=== PATIENT | male | born 1980 | race Caucasian/White ===

== ENCOUNTER 2024-02-06 19:24 | Inpatient (IN) | payer MEDICAID ==
[~2024-02-06] VITALS: Ht 182.9 cm; Wt 95.3 kg
[2024-02-06 19:27] VITALS: BP_SYST 133; PULSE 120; RESP 16; TEMP 98.5; O2SAT 97
[2024-02-06 20:56] LABS: BASOPHILS # (AUTO) 0.1 K/uL (0.0-0.2); BASOPHILS % (AUTO) 1.1 % (0.0-2.0); EOSINOPHILS # (AUTO) 0.1 K/uL (0.0-0.4); EOSINOPHILS % (AUTO) 0.8 % (0.0-4.0); HEMATOCRIT 43.1 % (36-54); HEMOGLOBIN 14.7 g/dL (14.0-18.0); LYMPHOCYTES # (AUTO) 3.9 K/uL (1.0-5.5); LYMPHOCYTES % (AUTO) 47.5 % (20.5-51.5); MEAN CORPUSCULAR HEMOGLOBIN 32 pg (27-31); MEAN CORPUSCULAR HGB CONC 34 % (32-36); MEAN CORPUSCULAR VOLUME 95 fL (79.0-98.0); MONOCYTES # (AUTO) 0.3 K/uL (0.0-1.0); MONOCYTES % (AUTO) 4.2 % (1.7-9.3); NEUTROPHILS # (AUTO) 3.8 K/uL (1.8-7.7); NEUTROPHILS % (AUTO) 46.4 % (40.0-70.0); PLATELET COUNT (AUTO) 311 K/uL (130-430); RED BLOOD CELL COUNT(AUTO) 4.54 MIL/uL (4.2-6.2); RED CELL DISTRIBUTION WIDTH 14.1 % (9.0-15.0); WHITE BLOOD COUNT (AUTO) 8.2 K/uL (4.8-10.8)
[2024-02-06 20:57] LABS: ANION GAP 10 (5-15); CALCIUM 8.7 mg/dL (8.4-11.0); CARBON DIOXIDE 28 mmol/L (23-29); CHLORIDE 103 mmol/L (98-107); CREATININE 0.91 mg/dL (0.55-1.30); GFR AFRICAN AMERICAN 118 mL/min (>90); GLUCOSE 96 mg/dL (74-106); POTASSIUM 3.8 mmol/L (3.5-5.1); SODIUM SERUM 141 mmol/L (136-145); UREA NITROGEN, BLOOD 8 mg/dL (8-21)
[2024-02-06 21:01] LABS: ALANINE AMINOTRANSFERASE 49 U/L (12-78); ALBUMIN 3.2 g/dL (3.4-4.8); ALCOHOL, BLOOD 258 mg/dL (<10); ASPARTATE AMINOTRANSFERASE 24 U/L (10-37); BILIRUBIN,DIRECT < 0.1 mg/dL (0.0-0.3); CREATINE KINASE, TOTAL 119 U/L (39-308); SALICYLATE 4 mg/dL (3-30); TOTAL BILIRUBIN 0.1 mg/dL (0.0-1.0); TOTAL PROTEIN, SERUM 7.2 g/dL (6.4-8.3)
[2024-02-06 21:02] LABS: ACETAMINOPHEN < 1 ug/mL (1-30); GFR NON AFRICAN-AMERICAN 97 mL/min (>90)
[2024-02-07 01:15] LABS: BILIRUBIN,URINE NEGATIVE (NEGATIVE); COLOR,URINE YELLOW (YELLOW); GLUCOSE,URINE NEGATIVE (NEGATIVE); KETONES,URINE NEGATIVE (NEGATIVE); LEUKOCYTE ESTERASE ,URINE NEGATIVE (NEGATIVE); NITRITE, URINE NEGATIVE (NEGATIVE); PROTEIN URINE 1+ (NEGATIVE); UROBILINOGEN,URINE 0.2 (0.2-1.0)
[2024-02-07 01:40] LABS: BLOOD, URINE TRACE (NEGATIVE); CLARITY/URINE HAZY (CLEAR)
[2024-02-07 01:41] LABS: BACTERIA,URINE None Seen /HPF (None Seen); WBC,URINE 0-3 /HPF (0-3)
[2024-02-07 01:44] LABS: CANNABINOID, URINE POSITIVE (NEG <=50); COCAINE, URINE POSITIVE (NEG <=150)
[2024-02-07 01:45] LABS: BARBITURATE, URINE NEGATIVE (NEG <=200); BENZODIAZEPINE, URINE POSITIVE (NEG <=150); METHAMPHETAMINES SCREEN,URINE POSITIVE (NEG <=500); OPIATE, URINE NEGATIVE (NEG <=100); PHENCYCLIDINE SCREEN,URINE NEGATIVE (NEG <=25); UR TRICYCLIC ANTIDEPRESSANTS NEGATIVE (NEG <=300); URINE AMPHETAMINE POSITIVE (NEG <=500); URINE METHADONE NEGATIVE (NEG <=200); URINE OXYCODONE SCREEN NEGATIVE (NEG <=100)
[2024-02-07] MEDS: LORazepam 2 MG/ML VIAL IVP PRN (05:28)
[2024-02-07] MEDS ORDERED: FOLIC ACID 1 MG, THIAMINE HCL 100 MG, MAGNESIUM SULFATE 1 GM, MVI 10 ML in NACL 0.9% 1,... IV ONE (06:00)
[2024-02-07] MEDS: THIAMINE HCL 100 MG, MAGNESIUM SULFATE 1 GM in NS 100 ML IV ONE (06:53)
[2024-02-07] MEDS: FOLIC ACID 1 MG, MVI 10 ML in NACL 0.9% 1,000 ML IV ONE (06:53)
[2024-02-07 08:25] VITALS: BP_SYST 140; PULSE 90; RESP 18; TEMP 98.8; O2SAT 98
[2024-02-07 08:56] VITALS: O2SAT 98
[2024-02-07 10:35] LABS: BASOPHILS # (AUTO) 0.1 K/uL (0.0-0.2); BASOPHILS % (AUTO) 1.2 % (0.0-2.0); EOSINOPHILS # (AUTO) 0.1 K/uL (0.0-0.4); EOSINOPHILS % (AUTO) 0.8 % (0.0-4.0); HEMATOCRIT 43.2 % (36-54); LYMPHOCYTES # (AUTO) 2.1 K/uL (1.0-5.5); LYMPHOCYTES % (AUTO) 25.7 % (20.5-51.5); MEAN CORPUSCULAR HEMOGLOBIN 33 pg (27-31); MEAN CORPUSCULAR HGB CONC 35 % (32-36); MEAN CORPUSCULAR VOLUME 95 fL (79.0-98.0); MONOCYTES # (AUTO) 0.6 K/uL (0.0-1.0); MONOCYTES % (AUTO) 6.7 % (1.7-9.3); NEUTROPHILS # (AUTO) 5.5 K/uL (1.8-7.7); NEUTROPHILS % (AUTO) 65.6 % (40.0-70.0); PLATELET COUNT (AUTO) 281 K/uL (130-430); RED BLOOD CELL COUNT(AUTO) 4.57 MIL/uL (4.2-6.2); RED CELL DISTRIBUTION WIDTH 13.8 % (9.0-15.0); WHITE BLOOD COUNT (AUTO) 8.3 K/uL (4.8-10.8)
[2024-02-07 10:44] LABS: CALCIUM 8.9 mg/dL (8.4-11.0); CREATININE 0.9 mg/dL (0.55-1.30); POTASSIUM 4.1 mmol/L (3.5-5.1)
[2024-02-07 10:49] LABS: ALBUMIN 3.1 g/dL (3.4-4.8); TOTAL BILIRUBIN 0.2 mg/dL (0.0-1.0)
[2024-02-07] MEDS: THIAMINE HCL 100 MG TABLET PO ONE (10:52)
[2024-02-07] MEDS: chlordiazePOXIDE HCL 10 MG CAPSULE PO ONE (10:53)
[2024-02-07 11:08] VITALS: BP_SYST 130; PULSE 85; RESP 16; TEMP 98.6; O2SAT 96
[2024-02-07] MEDS: chlordiazePOXIDE HCL 10 MG CAPSULE PO SCH (15:10)
[2024-02-07 15:17] VITALS: BP_SYST 147; PULSE 73; RESP 18; TEMP 97.1; O2SAT 98
[2024-02-07 17:12] VITALS: BP_SYST 140; PULSE 90; RESP 18; TEMP 98.8; O2SAT 0
[2024-02-07 20:00] VITALS: BP_SYST 144; PULSE 72; RESP 18; TEMP 98; O2SAT 98
[2024-02-07] MEDS ORDERED: HYDROcodone/ACETAMIN 5-325 MG TAB (NORCO/ VICODIN) PO PRN (20:00)
[2024-02-07] MEDS: OLANZapine 10 MG TABLET PO SCH (20:13)
[2024-02-07] MEDS: TEMAZEPAM 15 MG CAPSULE PO PRN (20:14)
[2024-02-07] MEDS: HYDROcodone/ACETAMIN 10-325 MG TAB PO PRN (20:15)
[2024-02-08] VITALS (7 sets, daily range): BP systolic 128–138; PULSE 69–89; RESP 16–18; TEMP 97.6–98.8; O2SAT 95–98
[2024-02-08] MEDS: FOLIC ACID 1 MG TABLET PO SCH (08:22)
[2024-02-08] MEDS: SERTRALINE HCL 50 MG TABLET PO SCH (08:23)
[2024-02-08] MEDS: ENOXAPARIN SODIUM 100 MG/ML SYRINGE SUBCUT SCH (08:23)
[2024-02-08] MEDS: THIAMINE HCL 100 MG TABLET PO SCH (08:23)
[2024-02-08] MEDS ORDERED: *LOVENOX 1MG/KG Q24H/PHARMACY XX ONE (09:00)
[2024-02-09 00:25] VITALS: BP_SYST 135; PULSE 92; RESP 20; TEMP 97.9; O2SAT 96
[2024-02-09 07:29] LABS: BASOPHILS % (AUTO) 0.7 % (0.0-2.0); EOSINOPHILS # (AUTO) 0.3 K/uL (0.0-0.4); EOSINOPHILS % (AUTO) 3.8 % (0.0-4.0); HEMOGLOBIN 15.7 g/dL (14.0-18.0); LYMPHOCYTES # (AUTO) 2.2 K/uL (1.0-5.5); LYMPHOCYTES % (AUTO) 29.9 % (20.5-51.5); MEAN CORPUSCULAR HEMOGLOBIN 33 pg (27-31); MEAN CORPUSCULAR HGB CONC 34 % (32-36); MEAN CORPUSCULAR VOLUME 96 fL (79.0-98.0); MONOCYTES # (AUTO) 0.4 K/uL (0.0-1.0); MONOCYTES % (AUTO) 5.9 % (1.7-9.3); NEUTROPHILS # (AUTO) 4.3 K/uL (1.8-7.7); NEUTROPHILS % (AUTO) 59.7 % (40.0-70.0); PLATELET COUNT (AUTO) 271 K/uL (130-430); RED CELL DISTRIBUTION WIDTH 13.9 % (9.0-15.0); WHITE BLOOD COUNT (AUTO) 7.2 K/uL (4.8-10.8)
[2024-02-09 07:34] LABS: CALCIUM 8.7 mg/dL (8.4-11.0); CREATININE 0.78 mg/dL (0.55-1.30); POTASSIUM 3.6 mmol/L (3.5-5.1); TOTAL BILIRUBIN 0.4 mg/dL (0.0-1.0); TOTAL PROTEIN, SERUM 6.9 g/dL (6.4-8.3)
[2024-02-09 08:00] VITALS: BP_SYST 136; PULSE 89; RESP 16; TEMP 98.7; O2SAT 97
[2024-02-09 09:43] VITALS: O2SAT 98
[2024-02-09] MEDS: NICOTINE 21 MG/24 HR PATCH.TD24 TD ONE (11:58)
[2024-02-09 12:00] VITALS: BP_SYST 132; PULSE 105; RESP 16; TEMP 98; O2SAT 99
[2024-02-09] MEDS: chlordiazePOXIDE HCL 25 MG CAPSULE PO SCH (14:57)
[2024-02-09 16:00] VITALS: BP_SYST 128; PULSE 80; RESP 14; TEMP 98; O2SAT 97
[2024-02-09] MEDS ORDERED: BACLOFEN 10 MG TABLET PO SCH (18:15)
[2024-02-09] MEDS: BACLOFEN 10 MG TABLET PO SCH (18:45)
[2024-02-09 20:03] VITALS: BP_SYST 121; PULSE 87; RESP 18; TEMP 98.2; O2SAT 98
[2024-02-09] MEDS: DICLOFENAC SODIUM 25 MG TABLET.DR PO SCH (20:39)
[2024-02-10] VITALS (7 sets, daily range): BP systolic 127–137; PULSE 63–91; RESP 14–18; TEMP 97.7–98.3; O2SAT 98
[2024-02-10] MEDS: NICOTINE 21 MG/24 HR PATCH.TD24 TD SCH (08:51)
[2024-02-10 12:06] LABS: HEPATITIS A AB, IgM Negative (Negative); HEPATITIS B CORE AB, IgM Negative (Negative); HEPATITIS B SURFACE AG Negative (Negative)
[2024-02-10] MEDS: BISACODYL 5 MG TABLET.DR (DULCOLAX) PO ONE (12:57)
[2024-02-10] MEDS: DOCUSATE SODIUM 250 MG CAPSULE PO ONE (12:58)
[2024-02-10] MEDS: ACETAMINOPHEN 325 MG TABLET PO PRN (12:58)
[2024-02-10] MEDS: KETOROLAC TROMETHAMINE 10 MG TABLET (TORADOL) PO PRN (18:41)
[2024-02-11] VITALS (7 sets, daily range): BP systolic 122–135; PULSE 72–96; RESP 17–20; TEMP 97.5–98.8; O2SAT 95–98
[2024-02-11] MEDS: LORazepam 1 MG TABLET PO ONE (17:34)
[2024-02-12 01:20] VITALS: BP_SYST 140; PULSE 66; RESP 2; TEMP 97.4; O2SAT 96
[2024-02-12 07:52] VITALS: BP_SYST 120; PULSE 88; RESP 18; TEMP 98; O2SAT 100
[2024-02-12 08:00] VITALS: O2SAT 99
[2024-02-12] MEDS ORDERED: BACL10TA PO (12:44)
[2024-02-12] MEDS ORDERED: SERT-436 PO (12:44)
[2024-02-12] MEDS ORDERED: OLAN10TA3 PO (12:44)
[2024-02-12] MEDS ORDERED: Thiamine Hcl PO (12:44)
[2024-02-12] MEDS ORDERED: DICL25TA PO (12:44)
[2024-02-12] MEDS ORDERED: FOLI-43 PO (12:44)
[2024-02-12] MEDS ORDERED: VIS50 PO (12:44)
[2024-02-12] MEDS ORDERED: NICO-737 TD (12:44)
[2024-02-12 17:19] VITALS: BP_SYST 124; PULSE 84; RESP 18; TEMP 98; O2SAT 96
[2024-02-19 08:41] LABS: HEPATITIS C VIRUS AB REACTIVE (0.0-0.9)
== END 2024-02-12 17:55 | disposition home or self-care (01) | DRG 812 ==
LOC: SED 19:24 → STU 02-07 03:32 → SMU 02-09 11:45
PROVIDERS: ADMIT Internal Medicine; ATTEND Internal Medicine
DX: T40.411A Poisoning by fentanyl or fentanyl analogs, accidental (unintentional), initial encounter (principal); E44.1 Mild protein-calorie malnutrition; R45.851 Suicidal ideations; F22 Delusional disorders; F33.2 Major depressive disorder, recurrent severe without psychotic features; R41.82 Altered mental status, unspecified; M19.171 Post-traumatic osteoarthritis, right ankle and foot; Z20.822 Contact with and (suspected) exposure to COVID-19; Z59.00 Homelessness unspecified; Z88.8 Allergy status to other drugs, medicaments and biological substances; T50.991A Poisoning by other drugs, medicaments and biological substances, accidental (unintentional), initial encounter; Y92.9 Unspecified place or not applicable; Z68.28 Body mass index [BMI] 28.0-28.9, adult
CPT/HCPCS: 36415; 80048; 80053; 80074; 80076; 80307; 81000; 81001; 81015; 82533; 82550; 85025; 96379; 99285; G0378; G0480; G0481; G0482; J1650; J2060; J3411; J3475; J3490; J7030